=== PATIENT | female | born 1935 | race Caucasian/White ===

== ENCOUNTER → 2016-08-20 | Outpatient (CLI) | payer MEDICARE, OTHER ==
[~2016-08-20] MED LIST: ASPI325T32 PO; CERT400K SQ; HYDR-905 PO; LYRI25 PO; PANT40TA4 PO; TRAM50TA2 PO
--- NOTE | 2016-08-20 11:18 | RADRPT ---
PROCEDURE: Limited x-ray of both lower extremities. CLINICAL INDICATION: Bilateral leg pain. TECHNIQUE: Single frontal view of both lower extremities was obtained from the hips to the calves. COMPARISON: Left hip and knee radiographs dated 07/09/2016. FINDINGS: There are mild degenerative changes of the right hip. There is a total left hip arthroplasty. Ther e is a total right knee arthroplasty. There are moderate degenerative changes of the left knee. IMPRESSION: 1. Mild degenerative changes of the right hip. 2. Total left hip arthroplasty. 3. Total right hip arthroplasty. 4. Moderate degenerative changes of the left knee. RPTAT: QQ .Twan Sterling MD, MD Date Time Electronically viewed and signed by .Twan Sterling MD, on 08/20/2016 11:18 .R/
== END | disposition home or self-care (01) ==
LOC: HKI 09:42
PROVIDERS: ATTEND Orthopaedic Surgery
DX: Z01.818 Encounter for other preprocedural examination (principal); T84.092A Other mechanical complication of internal right knee prosthesis, initial encounter; Y83.8 Other surgical procedures as the cause of abnormal reaction of the patient, or of later complication, without mention of misadventure at the time of the procedure; M25.461 Effusion, right knee; M06.9 Rheumatoid arthritis, unspecified; Z96.642 Presence of left artificial hip joint
CPT/HCPCS: 77073; 87081; G0463

== ENCOUNTER 2016-08-26 10:44 | Inpatient (IN) | payer MEDICARE, OTHER ==
--- NOTE | 2016-08-23 10:11 | CONS ---
DATE OF ADMISSION: 08/26/2016 DATE OF CONSULTATION: REASON FOR ADMISSION: She is being admitted on August [address] Salomon for planned revision righ t total knee replacement. HISTORY OF PRESENT ILLNESS: This is a healthy 81-year-old female who is status post a right total k nee replacement in 2008 and now is to undergo definitive revision. For the details of her orthopedi c history, please see the full evaluation per Dr. Salomon. Medically, she is in excellent health, denies any history of hypertension, diabetes, asthma, hepatit is, or any cardiopulmonary disease. No recent fevers, chills, sweats, nausea or vomiting. No chest pain or shortness of breath. PAST MEDICAL HISTORY: Please see full dictated problem list. ALLERGIES: NONE. HABITS: Tobacco: None. Alcohol: None. CURRENT MEDICATIONS: None. REVIEW OF SYSTEMS: As per HPI, otherwise the 14-point review of system is negative. PHYSICAL EXAMINATION: GENERAL: Fit-appearing woman in no acute distress. VITAL SIGNS: Afebrile, blood pressure 120/70, heart rate 72 and regular, respirations 12 and unlabo red. SKIN: No rash. HEAD: Normocephalic, atraumatic. EYES: Pupils are equal, round, reactive. Extraocular movements are full. Sclerae are anicteric. PHARYNX: No lesions. NECK: JVP is not distended. There is no adenopathy or thyromegaly. Carotids are 2+, no bruits. BACK: No CVAT. LUNGS: Clear. HEART: S1, S2, regular rate and rhythm, no murmurs. ABDOMEN: Soft and nontender. No organomegaly. EXTREMITIES: No cyanosis, clubbing or edema. Distal pulses are intact. LABORATORY DATA: Please see enclosed. PROBLEM LIST: 1. Right knee pain for planned revision right total knee replacement. 2. History of right total knee replacement in 2008. 3. Status post left total hip replacement in December of 2012. RECOMMENDATIONS: The patient is medically cleared for planned surgery. I will be happy to follow h er in the postop. Dictated By: ANDREW ARNOLD MD MM/NTS Conf#: [id number] DID#: [id number]
[2016-08-26] VITALS (20 sets, daily range): BP systolic 100–138; BP diastolic 45–65; PULSE 64–80; RESP 11–18; Ht 144.8 cm; Wt 57.9 kg
[~2016-08-26] VITALS: Ht 144.8 cm; Wt 57.9 kg
[2016-08-26] MEDS ORDERED: TRANEXAMIC ACID 600 MG in SOD CHLORIDE 0.9% 94 ML IV ONE (11:00)
[2016-08-26] MEDS ORDERED: oxyCODONE (CR) 10 MG TAB [oxyCONTIN] X1 DOSE PO ONE (11:00)
[2016-08-26] MEDS ORDERED: VANCOMYCIN 1 GM/NS 250 ML X1 BEFORE INCISION IVPB ONE (11:00)
[2016-08-26] MEDS: PAIN COCKTAIL-CEFUROXIME IRR SCH ×14 (11:00→16:15)
[2016-08-26] MEDS ORDERED: TRANEXAMIC ACID 600 MG in SOD CHLORIDE 0.9% 100 ML IVPB SCH (11:00)
[2016-08-26] MEDS: LACTATED RINGER'S 1,000 ML IV SCH ×3 (11:00→22:08)
[2016-08-26] MEDS ORDERED: traMADOL 50 MG TAB X 1 DOSE PO ONE (11:00)
[2016-08-26] MEDS ORDERED: PREGABALIN 300 MG PO X1 PO ONE (11:00)
[2016-08-26] MEDS ORDERED: CELECOXIB 400 MG PO X1 DOSE PO ONE (11:00)
[2016-08-26] MEDS ORDERED: BUPIVACAINE LIPOSOME/PF 266 MG/20 ML VIAL INFIL SCH (11:00)
[2016-08-26] MEDS ORDERED: EXPAREL NOTE (BUPIVICAINE LIPOSOMAL) XX SCH (11:00)
[2016-08-26] MEDS ORDERED: CERT400K SQ (11:46)
--- NOTE | 2016-08-26 13:09 | HPN ---
Date/Time of Note Date/Time of Note DATE: 08/26/16 TIME: 13:09 Interval H&P Admission Note Pt. seen H&P reviewed: No system changes No change from H&P dictated by Dr. Hai Lazo on 08/23/16 SHANIQUA JUNE MD Aug 26, 2016 13:09
[2016-08-26] MEDS ORDERED: POLYMYXIN B 500000 UNIT INJ ONE (13:35)
[2016-08-26] MEDS ORDERED: VANCOMYCIN 1 GM INJ ONE ×3 (13:35→15:00)
[2016-08-26] MEDS ORDERED: SODIUM CL BACTERIOSTATIC 30 ML INJ ONE (13:35)
[2016-08-26] MEDS ORDERED: FENTAnyl 50 MCG/ML VIAL ONE (13:54)
[2016-08-26] MEDS ORDERED: CEFAZOLIN 1 GM INJ ONE (14:11)
[2016-08-26] MEDS ORDERED: LIDOCAINE 2% (SDV) 5 ML INJ ONE (14:11)
[2016-08-26] MEDS ORDERED: TOBRAMYCIN 1.2 GM POWDER ONE (14:38)
[2016-08-26] MEDS ORDERED: FAMOTIDINE 20 MG INJ ONE (15:14)
[2016-08-26] MEDS ORDERED: DEXAMETHASONE 4 MG/ML 1 ML INJ ONE (15:14)
[2016-08-26] MEDS ORDERED: ONDANSETRON 4 MG INJ ONE (15:14)
[2016-08-26] MEDS ORDERED: EPHEDrine SULFATE 50 MG/5 ML SYG ONE (15:15)
[2016-08-26] MEDS ORDERED: BACITRACIN 50000 UNITS INJ ONE (15:16)
[2016-08-26] MEDS ORDERED: ROCURONIUM 50 MG INJ ONE (15:30)
[2016-08-26] MEDS ORDERED: SUCCINYLCHOLINE CHLORIDE 100 MG/5 ML SYG IV ONE (15:30)
[2016-08-26] MEDS ORDERED: PROPOFOL 100 ML ONE (15:30)
[2016-08-26] MEDS ORDERED: ETOMIDATE 20 MG INJ ONE (15:30)
[2016-08-26] MEDS ORDERED: GLYCOPYRROLATE 1 MG INJ ONE (15:45)
[2016-08-26] MEDS ORDERED: NEOSTIGMINE 3 MG/3 ML SYRINGE ONE (15:45)
[2016-08-26] MEDS ORDERED: FENTAnyl 50 MCG/ML VIAL IV PRN (16:00)
[2016-08-26] MEDS ORDERED: ONDANSETRON 4 MG INJ IV PRN ×2 (16:00→17:30)
[2016-08-26] MEDS ORDERED: PROCHLORPERAZINE 10 MG INJ IV PRN (16:00)
[2016-08-26] MEDS ORDERED: HYDROmorphONE (0.2 MG/ML) 10ML SYG IV PRN ×2 (16:00)
[2016-08-26] MEDS ORDERED: DIPHENHYDRAMINE 50 MG INJ IV PRN (16:00)
--- NOTE | 2016-08-26 17:04 | RADRPT ---
PROCEDURE: Intraoperative imaging of the right knee with fluoroscopy. CLINICAL INDICATION: Right knee pain. Intraoperative. TECHNIQUE: 13 images of the right knee were obtained in the operating room with an image intensifi er. No radiologist was in attendance. 0.4 minutes of fluoroscopy time was used. COMPARISON: No prior study is available for comparison. FINDINGS: Images demonstrate placement of a total right knee arthroplasty. IMPRESSION: 1. Intraoperative imaging of the right knee. RPTAT: QQ .Twan Sterling MD, MD Date Time Electronically viewed and signed by .Twan Sterling MD, MD on 08/26/2016 17:04 .R/
[2016-08-26] MEDS ORDERED: oxyCODONE 5 MG TAB PO PRN ×2 (17:30)
[2016-08-26] MEDS ORDERED: NACL 0.9% 3 ML SYG IV SCH (17:30)
[2016-08-26] MEDS ORDERED: MAGNESIUM HYDROXIDE 30ML CUP PO PRN (17:30)
[2016-08-26] MEDS ORDERED: BISACODYL 10 MG SUPP PR PRN (17:30)
[2016-08-26] MEDS ORDERED: DIPHENHYDRAMINE 25 MG CAP PO PRN (17:30)
[2016-08-26] MEDS ORDERED: HYDROmorphONE 1 MG/ML SYG IV PRN (17:30)
[2016-08-26] MEDS ORDERED: ASPIRIN (EC) 325 MG TAB PO ONE (17:30)
[2016-08-26] MEDS ORDERED: NA PHOSPHATE/BIPHOS 133 ML ENEMA PR PRN (17:30)
--- NOTE | 2016-08-26 17:50 | OPPN ---
Date/Time of Note Date/Time of Note DATE: 08/26/16 TIME: 17:49 Operative/Procedure Note Dictation # [id number] Pre-Operative Diagnosis Failed Right TKA Post-Operative Diagnosis Same Procedure Revision Right TKA Surgeon: SHANIQUA JUNE MD Strike Out Machine Operator: CARISSA COYNE PA-C Anesthesiologist: HUYEN SALCEDO MD Findings Loose tibia Blood Usage/Administration None Implants/Grafts Depuy TC3 Estimated blood loss: 100 - 150 ml's Drains Hemovac x 1 Specimens Aerobic and anaerobic cultures x 2 Complications: None Anesthesia type: spinal SHANIQUA JUNE MD Aug 26, 2016 17:50
--- NOTE | 2016-08-26 17:55 | PN ---
Date/Time of Note Date/Time of Note DATE: 08/26/16 TIME: 17:42 Assessment/Plan Lines/Catheters IV Catheter Type (from Nrsg): Peripheral IV Assessment/Plan Assessment/Plan Stable in PACU, s/p revision right TKA -cont Vancomycin x 72 hours until final culture results -pain meds -ASA/SCDs for DVT prophylaxis -OOB with PT -check AM labs -monitor drain -d/c short in AM XR of the right knee shows good alignment with no evidence of dislocation Subjective 24 Hr Interval Summary Resting comfortably in PACU. Denies pain. Moving all extremities. Dressings and drain in place. Exam/Review of Systems Vital Signs Vitals Vital Signs Date Time Temp Pulse Resp B/P Pulse Ox O2 Delivery O2 Flow Rate FiO2 08/26/16 11:53 97.6 72 16 138/65 98 Room Air Intake and Output 08/25/16 08/25/16 08/26/16 15:00 23:00 07:00 Intake Total 0 ml Balance 0 ml Exam Free Text/Dictation Dressing dry Incision clean, dry, and intact without redness or drainage Thigh soft 5/5 Quadriceps, Tibialis Anterior, EHL, Gastroc, Soleus, Peroneals Normal sensation Palpable DT/PT, CR <2 sec No distal edema CARISSA COYNE PA-C Aug 26, 2016 17:53
[2016-08-26 18:00] LABS: HEMATOCRIT 34.8 % (37.0-47.0); HEMOGLOBIN 11.5 g/dl (12.0-16.0)
--- NOTE | 2016-08-26 18:07 | RADRPT ---
PROCEDURE: Right knee radiographs. CLINICAL INDICATION: Right knee pain. Postop. TECHNIQUE: Two views. Frontal and lateral. COMPARISON: 07/09/2016. FINDINGS: There is a right knee total arthroplasty revision. Antibiotic beads are noted in the suprapatellar bursa along with a surgical drain. There is no fracture or dislocation. There is no lytic lesion. IMPRESSION: 1. Satisfactory postoperative images of the right knee. RPTAT: QQ .Twan tSerling MD, MD Date Time Electronically viewed and signed by .Twan Sterling MD, MD on 08/26/2016 18:06 .R/
[2016-08-26] MEDS: ACETAMINOPHEN 1000MG/100ML IV 100 ML IVPB SCH (18:12)
[2016-08-26] MEDS: PANTOPRAZOLE (EC) 40 MG TAB PO SCH (18:13)
[2016-08-26] MEDS: traMADol 50 MG TAB PO SCH (18:13)
[2016-08-26 18:16] LABS: POTASSIUM 4.3 mmol/L (3.5-5.1)
[2016-08-26 18:39] LABS: CALCIUM 8.5 mg/dl (8.4-10.2); CREATININE 0.51 mg/dl (0.44-1.00)
[2016-08-26 19:10] LABS: ADD UMIC YES; URINE BILIRUBIN (Dip) NEGATIVE (NEGATIVE); URINE BLOOD (Dip) NEGATIVE (NEGATIVE); URINE COLOR LT. YELLOW (YELLOW); URINE GLUCOSE (Dip) NEGATIVE (NEGATIVE); URINE KETONES (Dip) NEGATIVE (NEGATIVE); URINE LEUKOCYTE ESTERASE (Dip) NEGATIVE (NEGATIVE); URINE NITRITE (Dip) NEGATIVE (NEGATIVE); URINE TOTAL PROTEIN (Dip) TRACE (NEGATIVE); URINE UROBILINOGEN (Dip) 0.2 E.U./dL (0.1-1.0)
[2016-08-26 19:45] LABS: BACTERIA,URINE FEW; TRANSITIONAL EPI CELLS,URINE MODERATE; URINE RBCS NONE SEEN /HPF (0)
--- NOTE | 2016-08-26 19:57 | CONS ---
DATE OF ADMISSION: 08/26/2016 DATE OF CONSULTATION: 08/26/2016 TYPE OF CONSULTATION: Postop medical. Dear Dr. Salomon: Thank you very much for allowing me to evaluate this 81-year-old female who underw ent a right total knee replacement. HISTORICAL EVENTS: As you well know, this patient did have a right knee replacement in 2008 and bec ause of increasing pain, elected to proceed with a needed revision. Postoperatively, in the recover y room, she is lethargic, responds to name, comfortable, not tachypneic. PAST MEDICAL HISTORY: Left total hip 2013. Unremarkable past medical history having no history of coronary artery disease, hypertension, diabetes. ALLERGIES: NONE. CURRENT MEDICATIONS: None. PHYSICAL EXAMINATION: GENERAL: Comfortable-appearing female in no acute distress. VITAL SIGNS: BP 125/80, pulse 70, respirations 20, she was afebrile. EYES: Extraocular muscles were full. NOSE, MOUTH, AND THROAT: Normal. NECK: Supple, no jugular venous distention, thyroid enlargement or adenopathy. LUNGS: Clear. HEART: Rhythm regular. ABDOMEN: Nontender. Liver and spleen were not palpable. No masses or tenderness were noted. EXTREMITIES: The right was bandaged. The left revealed no edema. IMPRESSION: 1. Stable postop right knee replacement. 2. Will evaluate her daily for signs and symptoms of thromboembolic disease despite an appropriate deep venous thrombosis prophylaxis. Dictated By: SITA ESCOBAR/AKIN Conf#: [id number] DID#: [id number]
--- NOTE | 2016-08-26 20:03 | OPR ---
DATE OF OPERATION: 08/26/2016 PREOPERATIVE DIAGNOSIS: Failed right total knee arthroplasty. POSTOPERATIVE DIAGNOSIS: Failed right total knee arthroplasty. OPERATION PERFORMED: Revision right total knee arthroplasty. SURGEON: Shaniqua Salomon MD TABLE ASSEMBLER: Odalis PEÑALOZA COMPONENTS USED: DePuy size 2 TC3 femur with a +2 five degree bolt, 8 mm medial and lateral distal augments, 34 mm metaphyseal femoral sleeve, and a 14 mm diameter x 75 mm femoral stem, size 2 MBT revision tibial tray, 45 mm metaphyseal tibial sleeve, and a 14 mm diameter x 75 mm tibial stem, 15 mm polyethylene insert. ANESTHESIA: Spinal plus general endotracheal intubation plus periarticular injection. ANESTHESIOLOGIST: Toma Sierra MD TOURNIQUET TIME: 98 minutes. ESTIMATED BLOOD LOSS: 100 mL. INTRAVENOUS FLUIDS: 2200 mL crystalloid. SPECIMENS: Aerobic and anaerobic culture of joint fluid x2. DRAINS: Hemovac x1. COMPLICATIONS: None. DISPOSITION: The patient tolerated the procedure well and was taken to the recovery room in stable condition. INDICATIONS: The patient is an 81-year-old woman who underwent a previous right total knee arthroplasty several years ago. She has had recurrent effusions and instability. She had an infection workup which was negative. I felt she would benefit from a revision with either liner exchange or a complete revision to TC3 components. The risks, benefits, alternatives of the procedure were explained in detail to the patient. I explained the risks to include but not be limited to bleeding and possible need for blood transfusion, infection, pain, stiffness, neurovascular injury, possible numbness, weakness, and/or paralysis anywhere from the knee down to the toes, fracture, ligamentous injury , need for additional future surgery including possible repeat revision total knee arthroplasty, possible loss of limb, possible wound healing problems, blood clots, pulmonary embolism, and anesthetic complications such as heart attack, stroke, GI bleed, pneumonia and/or . Ample time was allowed for the patient to ask questions, all of which were addressed and answered. She understood the risks involved and wished to proceed. Informed consent was signed prior to the procedure. PROCEDURE: The patient's right knee was initialed with a marking pen in the preoperative holding area to identify the correct operative site. The patient was then brought to the operating room and transferred from the [facility] to the operating table where she was administered a spinal anesthetic and then anesthetized and intubated. A Saenz catheter was placed. Time out was performed to confirm the right side was the correct operative site. A tourniquet was placed on right proximal thigh. The patient was given 1 gram of vancomycin and 1 gram of Ancef within 1 hour prior to the incision. A tourniquet was placed on right proximal thigh. The right knee and lower extremity were prepped and draped in usual sterile fashion. The right lower extremity was elevated and exsanguinated with the Esmarch tourniquet and the proximal thigh tourniquet was inflated to 275 mmHg. The knee was flexed. The previous midline incision was excised. This was carried down to subcutaneous tissue and fat with sharp dissection. Limited medial and lateral flaps were raised. The previous medial parapatellar arthrotomy was reincised. The previous Ethibond sutures were removed. Synovial fluid was normal in color and consistency and swabbed for aerobic and anaerobic culture x2. A medial release was performed at the joint line to the mid coronal plane. The patella was subluxed anteriorly and the knee flexed. The knee came to about 10 degrees of hyperextension and had some laxity in mid flexion to varus and valgus stress testing. The polyethylene insert was removed. There was some subtle motion at the tibial cement bone interface with some resorption of the medial tibial bone. I felt that she would benefit from complete revision given that there was some motion at the tibia. At this point, the Biomet Ultra-Drive was used to free up the remaining cement bone interface on both the tibia and femoral components. They were removed with minimal bone loss. The patellar button remained well fixed and in good position. At this point, the remaining cement was removed from the tibia and the tibia was reamed with hand reamers going up to 14 mm, getting a good bite. I then broached going up to a size 45 mm broach getting a good bite. The cleanup osteotomy was made on the top of the metaphyseal sleeve with the oscillating saw and the tibia trialed to be a 2. The trial size 2 tibia with a trial metaphyseal sleeve was placed into position and then the femur was reamed in a similar fashion by hand up to 14 mm and then broached up to a size 34 sleeve, getting a good bite. The femur was sized to be a 2. The size 2 four-in -one cutting block with 8 mm distal augments medially and laterally was pinned into position with the knee in 90 degrees of flexion with a 15 [address] in [address] to set the rotation. The anterior, posterior and chamfer cuts were made with the oscillating saw. The central box was cut out for TC3. A trial TC3 was assembled and placed into position. A 15 mm insert was placed in the tibia and reduced on the femur. The knee came to full extension as evidenced by the fact that with the foot on my abdomen, and axial loading, there was no tendency for the knee to flex. The knee was able to be flexed to 120 degrees with good patellar tracking with no lateral tilt or subluxation. There was no varus or valgus instability. C-arm imaging confirmed the components to be in good position on AP and lateral views. At this point, the trials were removed. The real components were opened and assembled on the back table. The knee was irrigated with antibiotic saline pulsatile lavage and then Betadine and peroxide, and then additional antibiotic saline pulsatile lavage and the bony surfaces were sucked dry. At this point, 3 bags of cement were mixed with vancomycin mixed into it and once in the doughy stage, real components were cemented into place, making sure that the metaphyseal sleeve porous coating was free of cement. This was held in place with a 15 mm insert with the knee in full extension. All excess cement was removed with curettes. Once the cement was completely hardened, the C-arm was brought in and final AP and lateral C-arm images confirmed the components were in good position and well aligned on AP and lateral views. At this point, the tourniquet was let down. The trial liner was removed. The real 15 mm polyethylene insert was opened and placed in the tibia and reduced onto the femur. At this point, Stimulan beads mixed with vancomycin and tobramycin were placed in the knee joint. A Hemovac drain was placed in the deep portion of the wound and brought out the anterolateral thigh. The arthrotomy was closed with a few interrupted #1 Ethibond and then a running #2 STRATAFIX suture. Knee flexion was checked against gravity and came to 120 degrees. The soft tissues were infiltrated with a mixture of 0.5% bupivacaine, 8 mg of Duramorph, 300 mcg of epinephrine, 750 mg of cefuroxime, 30 mg of Toradol, 100 mcg of clonidine, 50 mL of normal saline and 266 mg of liposomal bupivacaine. The subcutaneous layer was irrigated and closed with 2-0 STRATAFIX , 3-0 STRATAFIX and then interrupted 2-0 Prolenes in a vertical mattress fashion. The drain was secured with 3-0 nylon. Sponge and needle counts correct at the end of case. The wound was covered with a silver Mepilex and wrapped with sterile cast padding and a bias dressing. The patient was awakened , extubated, and taken to the recovery room in stable condition. Dictated By: SHANIQUA WEINBERG/AKIN Conf#: [id number] DID#: [id number] MTDD
[2016-08-26] MEDS: PREGABALIN 25 MG CAP PO SCH (20:50)
[2016-08-26] MEDS: DOCUSATE SODIUM 100 MG CAP PO SCH (20:51)
[2016-08-26] MEDS: VANCOMYCIN 1 GM (PMX) 250 ML IVPB SCH ×2 (21:00→22:08)
[2016-08-27] MEDS: ACETAMINOPHEN 1000MG/100ML IV 100 ML IVPB SCH ×3 (00:40→12:57)
[2016-08-27] MEDS: traMADol 50 MG TAB PO SCH ×4 (00:40→17:55)
[2016-08-27] MEDS: LACTATED RINGER'S 1,000 ML IV SCH ×5 (00:41→17:25)
[2016-08-27 05:10] LABS: HEMATOCRIT 29.9 % (37.0-47.0)
[2016-08-27 05:11] LABS: POTASSIUM 5.3 mmol/L (3.5-5.1)
[2016-08-27 05:13] LABS: CREATININE 0.51 mg/dl (0.44-1.00)
[2016-08-27] MEDS: PANTOPRAZOLE (EC) 40 MG TAB PO SCH ×2 (05:40→17:54)
[2016-08-27 05:58] VITALS: BP 117/59; PULSE 73; RESP 18
[2016-08-27 06:48] LABS: ADD UMIC YES; URINE BILIRUBIN (Dip) NEGATIVE (NEGATIVE); URINE BLOOD (Dip) TRACE (NEGATIVE); URINE COLOR LT. YELLOW (YELLOW); URINE GLUCOSE (Dip) NEGATIVE (NEGATIVE); URINE KETONES (Dip) NEGATIVE (NEGATIVE); URINE LEUKOCYTE ESTERASE (Dip) NEGATIVE (NEGATIVE); URINE NITRITE (Dip) NEGATIVE (NEGATIVE); URINE TOTAL PROTEIN (Dip) TRACE (NEGATIVE); URINE UROBILINOGEN (Dip) 0.2 E.U./dL (0.1-1.0)
[2016-08-27 07:26] LABS: SQUAMOUS EPITHELIAL CELL,UR FEW; URINE RBCS 0-2 /HPF (0)
[2016-08-27 07:55] VITALS: BP 111/56; RESP 18
--- NOTE | 2016-08-27 07:57 | PDOCDIS ---
Discharge Instructions DIAGNOSIS Discharge Diagnosis: s/p revison right TKA CONDITION Patient Condition: Good HOME CARE INSTRUCTIONS: Diet Instructions: Regular ACTIVITY: Activity Restrictions: Slowly Increase Activity Rest between Activity Avoid heavy lifting Do not operate Machinery Do not operate Power Tool Avoid Heavy Housework Keep Limb Elevated Bathing Restrictions: Shower FOLLOW UP/APPOINTMENTS Appointments follow up with Dr. Salomon in the office on 09/06/16 OTHER ORDERS: Other Orders: S/P TKA Physical Therapy: Three times per week at home x 2 weeks Daily in Rehab/SNF (if indicated) WB STATUS: WBAT 1. Strengthening exercises for both upper and un-operated lower extremities. 2. Gait training with front wheeled walker 3. Active range of motion exercises to operative knee. 4. When not working on knee range of motion exercises, distal towel roll under operative ankle/distal calf to promote full extension. 5. DO NOT PUT ANYTHING BEHIND OPERATIVE KNEE!!! 6. Quadriceps and hamstring strengthening. 7. May switch to cane in contra lateral hand 6 weeks after surgery. 8. Physical Therapy can open case if nursing is not available. 9. Use Ice Machine as instructed from date of surgery while at rest 3X/day. 10. Patient requires mobile SCDs to reduce risk of developing DVT following TKA. Patient will use the mobile SCDs for 30 days postoperatively. Bathing assistance by home health aide twice weekly if Medicare patient. Occupational Therapy: Evaluation for assistive devices and ADL training. Wound Care: Keep incision dry & covered with Tegaderm until first visit with Dr. Salomon Anticoagulation Orders: Enteric Coated Aspirin 325 mg po bid x 6 weeks from date of surgery Follow-up:Call for an appointment with Dr. Salomon in 1 week after discharged from hospital at DME Orders: FWW, 3-in-1 Commode, Polar ice machine, Mobile SCDs CARISSA COYNE PA-C Aug 27, 2016 07:57
[2016-08-27] MEDS ORDERED: HYDR-905 PO (07:59)
[2016-08-27] MEDS ORDERED: PANT40TA4 PO (07:59)
[2016-08-27] MEDS ORDERED: TRAM50TA2 PO (07:59)
[2016-08-27] MEDS ORDERED: LYRI25 PO (07:59)
[2016-08-27] MEDS ORDERED: ASPI325T32 PO (07:59)
--- NOTE | 2016-08-27 08:36 | CONS ---
Date/Time of Note Date/Time of Note DATE: 08/27/16 TIME: 08:35 Assessment/Plan Assessment/Plan Additional Assessment/Plan 1. Stable post op right knee 2. Sl in K, will stop celebrex and repeat K later Consultation Date/Type/Reason Admit Date/Time Aug 26, 2016 at 10:44 Initial Consult Date Detailed Summary Respiratory: No cough, No shortness of breath Cardiovascular: No chest pain Gastrointestinal: no complaints Genitourinary: other (short in place) Exam/Review of Systems Vital Signs Vitals Vital Signs Date Time Temp Pulse Resp B/P Pulse Ox O2 Delivery O2 Flow Rate FiO2 08/27/16 07:55 97.5 65 18 111/56 97 08/27/16 05:58 Nasal Cannula 08/26/16 21:15 2.0 Intake and Output 08/26/16 08/26/16 08/27/16 15:00 23:00 07:00 Intake Total 2420 ml 1850 ml Output Total 1270 ml 1280 ml Balance 1150 ml 570 ml Exam Neck: No jvd Respiratory: clear to auscultation Cardiovascular: regular rate and rhythm Gastrointestinal: soft Extremities: No edema (and no calf tend bilat) Results Result Diagram: 08/27/16 0440 08/27/16 0440 Results 24 hrs Laboratory Tests Test 08/26/16 17:34 08/26/16 17:45 08/27/16 04:00 08/27/16 04:40 Urine Bacteria FEW Urine Bilirubin NEGATIVE NEGATIVE Urine Clarity SLIGHTLY CLOUDY CLEAR Urine Coarse Granular Casts MODERATE Urine Color LT. YELLOW LT. YELLOW Urine Glucose NEGATIVE NEGATIVE Urine Hemoglobin NEGATIVE TRACE Urine Ketones NEGATIVE NEGATIVE Urine Leukocyte Esterase NEGATIVE NEGATIVE Urine Microscopic RBC NONE SEEN 0-2 Urine Microscopic WBC NONE SEEN 0-2 Urine Nitrite NEGATIVE NEGATIVE Urine Specific [place] 1.010 1.025 Urine Total Protein TRACE TRACE Urine Transitional Epithelial Cells MODERATE Urine Urobilinogen 0.2 E.U./dL 0.2 E.U./dL Urine pH 6.0 6.0 Anion Gap 13 15 Blood Urea Nitrogen 9 12 Calcium Level 8.5 9.0 Carbon Dioxide Level 24 23 Chloride Level 103 101 Creatinine 0.51 0.51 Glucose Level 150 146 Hematocrit 34.8 L 29.9 L Hemoglobin 11.5 L 10.0 L Potassium Level 4.3 5.3 H Sodium Level 136 134 L Urine Squamous Epithelial Cells FEW Medications Medications Current Medications Lactated Ringer's (Lr) 1,000 ml @ 100 mls/hr Q10H IV Last administered on 22:08; Admin Dose 100 MLS/HR; Start 08/26/16 at 11:00 Miscellaneous Information 1 ea 1 ea NOTE XX Last administered on 08/26/16 16:15 ; Admin Dose 1 EA; Start 08/26/16 at 11:00; Stop 08/30/16 at 10:59 Lactated Ringer's (Lr) 1,000 ml @ 125 mls/hr Q8H IV Last administered on 00:41; Admin Dose 125 MLS/HR; Start 08/26/16 at 17:25 Celecoxib 200 mg 200 mg DAILY PO ; Start 08/27/16 at 09:00 Acetaminophen (Ofirmev 1000mg/ 100ml Iv) 100 ml @ 400 mls/hr Q6 IVPB Last administered on 08/27/16 05:41; Admin Dose 400 MLS/HR; Start 08/26/16 at 18:00; Stop 08/27/16 at 17:59 Tramadol HCl (Ultram) 50 mg Q6 PO Last administered on 08/27/16 05:40; Admin Dose 50 MG; Start 08/26/16 at 18:00; Stop 08/29/16 at 17:59 Oxycodone HCl (Roxicodone) 5 mg Q4H PRN PO PAIN LEVEL 1-3; Start 08/26/16 at 17: 30 Oxycodone HCl (Roxicodone) 10 mg Q4H PRN PO PAIN LEVEL 4-7; Start 08/26/16 at 17 :30 Hydromorphone HCl 1 mg 1 mg Q3H PRN IV PAIN LEVEL 8-10; Start 08/26/16 at 17:30 Vancomycin HCl (Vancocin) 250 ml @ 125 mls/hr Q12 IVPB Last administered on 22:08; Admin Dose 125 MLS/HR; Start 08/26/16 at 21:00; Stop 08/29/16 at 20: 59 Ondansetron HCl (Zofran Inj) 4 mg Q6H PRN IV NAUSEA AND/OR VOMITING; Start 08/26 at 17:30 Bisacodyl (Dulcolax Supp) 10 mg Q12H PRN [place] CONSTIPATION; Start 08/26/16 at 17: 30 Magnesium Hydroxide (Milk Of Mag) 30 ml BID PRN PO CONSTIPATION; Start 08/26/16 at 17:30 Sodium Biphosphate/ Sodium Phosphate (Fleet Enema) 133 ml DAILY PRN [place] CONSTIPATION; Start 08/26/16 at 17:30 Docusate Sodium (Colace) 100 mg BID PO Last administered on 08/26/16 20:51; Admin Dose 100 MG; Start 08/26/16 at 21:00 Diphenhydramine HCl (Benadryl) 25 mg Q6H PRN PO PRURITUS; Start 08/26/16 at 17: 30 Aspirin (Ecotrin) 325 mg BID PO ; Start 08/27/16 at 09:00 Pantoprazole (Protonix Tab) 40 mg BID@06,18 PO Last administered on 08/27/16 05 :40; Admin Dose 40 MG; Start 08/26/16 at 18:00 Pregabalin (Lyrica) 50 mg BID PO Last administered on 08/26/16 20:50; Admin Dose 50 MG; Start 08/26/16 at 21:00 SITA LATIF MD Aug 27, 2016 08:36
[2016-08-27] MEDS: ASPIRIN (EC) 325 MG TAB PO SCH ×2 (08:58→21:23)
[2016-08-27] MEDS: DOCUSATE SODIUM 100 MG CAP PO SCH ×2 (08:58→21:23)
--- NOTE | 2016-08-27 08:59 | PN ---
Date/Time of Note Date/Time of Note DATE: 08/27/16 TIME: 08:57 Assessment/Plan Lines/Catheters IV Catheter Type (from Nrsg): Peripheral IV Saenz in Place (from Nrsg): Yes Assessment/Plan Assessment/Plan Stable POD #1, s/p revision right TKA -cont vanco until final culture results -ASA/SCDs -pain meds -OOB with PT -monitor drain -check AM labs -d/c planning. Home versus SNF Subjective 24 Hr Interval Summary Doing well. No acute overnight events. Denies pain. Did not start with PT. Still on abx Exam/Review of Systems Vital Signs Vitals Vital Signs Date Time Temp Pulse Resp B/P Pulse Ox O2 Delivery O2 Flow Rate FiO2 08/27/16 07:55 97.5 65 18 111/56 97 08/27/16 05:58 Nasal Cannula 08/26/16 21:15 2.0 Intake and Output 08/26/16 08/26/16 08/27/16 14:59 22:59 06:59 Intake Total 2420 ml 1850 ml Output Total 1270 ml 1280 ml Balance 1150 ml 570 ml Exam Free Text/Dictation Hemovac: 100cc Dressing dry Incision clean, dry, and intact without redness or drainage Thigh soft 5/5 Quadriceps, Tibialis Anterior, EHL, Gastroc, Soleus, Peroneals Normal sensation Palpable DT/PT, CR <2 sec No distal edema Results Result Diagram: 08/27/1643908/27/16439 CARISSA COYNE PA-C Aug 27, 2016 08:58
[2016-08-27] MEDS ORDERED: CELECOXIB 200 MG CAP PO SCH (09:00)
[2016-08-27] MEDS: PREGABALIN 25 MG CAP PO SCH ×2 (09:35→21:23)
[2016-08-27] MEDS: VANCOMYCIN 1 GM (PMX) 250 ML IVPB SCH (09:35)
[2016-08-27 21:30] VITALS: BP 122/59; PULSE 71; RESP 18
[2016-08-28] MEDS: LACTATED RINGER'S 1,000 ML IV SCH ×3 (01:25→08:48)
[2016-08-28] MEDS: PANTOPRAZOLE (EC) 40 MG TAB PO SCH ×2 (05:52→18:00)
[2016-08-28] MEDS: traMADol 50 MG TAB PO SCH ×5 (05:53→23:28)
[2016-08-28 05:55] LABS: POTASSIUM 4.1 mmol/L (3.5-5.1)
[2016-08-28 05:57] LABS: CREATININE 0.57 mg/dl (0.44-1.00)
[2016-08-28 05:58] LABS: CALCIUM 8.6 mg/dl (8.4-10.2)
[2016-08-28 06:58] LABS: HEMATOCRIT 27.6 % (37.0-47.0); HEMOGLOBIN 8.8 g/dl (12.0-16.0)
[2016-08-28 07:37] VITALS: BP 112/57; RESP 20
[2016-08-28] MEDS: VANCOMYCIN 1 GM (PMX) 250 ML IVPB SCH (08:43)
[2016-08-28] MEDS: PREGABALIN 25 MG CAP PO SCH ×2 (08:44→20:45)
[2016-08-28] MEDS: DOCUSATE SODIUM 100 MG CAP PO SCH ×2 (08:44→20:46)
[2016-08-28] MEDS: ASPIRIN (EC) 325 MG TAB PO SCH ×2 (08:44→20:45)
--- NOTE | 2016-08-28 11:40 | PN ---
Date/Time of Note Date/Time of Note DATE: 08/28/16 TIME: 11:38 Assessment/Plan Lines/Catheters IV Catheter Type (from Nrsg): Peripheral IV Saenz in Place (from Nrsg): Yes Assessment/Plan Assessment/Plan POD # 2. Stable. -Drain d/c'd -OOB with PT -Pain meds -ASA/SCDs -Continue Vanco x 24 hours until intraop cultures final -[facility] eval for possible transfer tomorrow Subjective 24 Hr Interval Summary Resting comfortably. Minimal pain. Exam/Review of Systems Vital Signs Vitals Vital Signs Date Time Temp Pulse Resp B/P Pulse Ox O2 Delivery O2 Flow Rate FiO2 08/28/16 07:37 98.8 80 20 112/57 97 08/27/16 21:30 Room Air 08/26/16 21:15 2.0 Intake and Output 08/27/16 08/27/16 08/28/16 15:00 23:00 07:00 Intake Total 250 ml 2540 ml 500 ml Output Total 40 ml Balance 250 ml 2500 ml 500 ml Exam Free Text/Dictation Hemovac: 40 cc overnight, none this AM Dressing dry Incision clean, dry, and intact without redness or drainage 5/5 Tibialis Anterior, EHL, Gastroc Soleus, Peroneals Normal sensation Palpable DP/PT, CR < 2 Sec No distal edema Cultures: no growth x 48 hours Results Result Diagram: 08/28/1642908/28/16429 SHANIQUA JUNE MD Aug 28, 2016 11:40
[2016-08-28] MEDS ORDERED: HYDROCODONE/APAP (5/325) TAB PO PRN ×2 (12:00)
[2016-08-28 19:51] VITALS: BP 138/63; RESP 18
--- NOTE | 2016-08-28 21:05 | CONS ---
Date/Time of Note Date/Time of Note DATE: 08/28/16 TIME: 21:03 Assessment/Plan Assessment/Plan Additional Assessment/Plan 1. Stable post op right knee, improved pain, refuses tramadolol -stable to be d/c to aru 2. Sl in K, will stop celebrex and repeat K later -improved d/c planning Coverage For Dr. Cory Hudson MD Internal Medicine Consultation Date/Type/Reason Admit Date/Time Aug 26, 2016 at 10:44 Type of Consultation: Internal Medicine Exam/Review of Systems Vital Signs Vitals Vital Signs Date Time Temp Pulse Resp B/P Pulse Ox O2 Delivery O2 Flow Rate FiO2 08/28/16 19:51 98.5 88 18 138/63 97 08/27/16 21:30 Room Air 08/26/16 21:15 2.0 Intake and Output 08/27/16 08/27/16 08/28/16 15:00 23:00 07:00 Intake Total 250 ml 2540 ml 500 ml Output Total 40 ml Balance 250 ml 2500 ml 500 ml Exam Constitutional: alert, oriented Psych: no complaints Head: atraumatic, normocephalic Eyes: nl conjunctiva ENMT: nl external ears & nose Neck: supple Respiratory: clear to auscultation Cardiovascular: nl pulses, regular rate and rhythm Gastrointestinal: nl liver, spleen, soft Extremities: normal pulses 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 Results Result Diagram: 08/28/16 0430 08/28/16 0430 Results 24 hrs Laboratory Tests Test 08/28/16 04:30 Anion Gap 12 Blood Urea Nitrogen 13 Calcium Level 8.6 Carbon Dioxide Level 25 Chloride Level 100 Creatinine 0.57 Glucose Level 89 # Hematocrit 27.6 L Hemoglobin 8.8 L Potassium Level 4.1 Sodium Level 133 L Medications Medications Current Medications Miscellaneous Information 1 ea NOTE XX Last administered on 08/26/16 16:15; Admin Dose 1 EA; Start 08/26/16 at 11:00; Stop 08/30/16 at 10:59 Tramadol HCl (Ultram) 50 mg Q6 PO Last administered on 08/28/16 08:45; Admin Dose 50 MG; Start 08/26/16 at 18:00; Stop 08/29/16 at 17:59 Hydromorphone HCl (Dilaudid) 1 mg Q3H PRN IV PAIN LEVEL 8-10; Start 08/26/16 at 17:30 Ondansetron HCl (Zofran Inj) 4 mg Q6H PRN IV NAUSEA AND/OR VOMITING; Start 08/26 at 17:30 Bisacodyl (Dulcolax Supp) 10 mg Q12H PRN [place] CONSTIPATION Last administered on 06:48; Admin Dose 10 MG; Start 08/26/16 at 17:30 Magnesium Hydroxide (Milk Of Mag) 30 ml BID PRN PO CONSTIPATION Last administered on 08/27/16 21:26; Admin Dose 30 ML; Start 08/26/16 at 17:30 Sodium Biphosphate/ Sodium Phosphate (Fleet Enema) 133 ml DAILY PRN [place] CONSTIPATION; Start 08/26/16 at 17:30 Docusate Sodium (Colace) 100 mg BID PO Last administered on 08/28/16 20:46; Admin Dose 100 MG; Start 08/26/16 at 21:00 Diphenhydramine HCl (Benadryl) 25 mg Q6H PRN PO PRURITUS; Start 08/26/16 at 17: 30 Aspirin (Ecotrin) 325 mg BID PO Last administered on 08/28/16 20:45; Admin Dose 325 MG; Start 08/27/16 at 09:00 Pantoprazole (Protonix Tab) 40 mg BID@06,18 PO Last administered on 08/28/16 05 :52; Admin Dose 40 MG; Start 08/26/16 at 18:00 Pregabalin 50 mg 50 mg BID PO Last administered on 08/28/16 20:45; Admin Dose 50 MG; Start 08/26/16 at 21:00 Vancomycin HCl (Vancocin) 250 ml @ 125 mls/hr Q24H IVPB Last administered on 08:43; Admin Dose 125 MLS/HR; Start 08/28/16 at 09:00; Stop 08/29/16 at 12 :00 Acetaminophen/ Hydrocodone Bitart ([place] (5/325)) 1 tab Q4H PRN PO MILD PAIN LEVEL 1-3; Start 08/28/16 at 12:00 Acetaminophen/ Hydrocodone Bitart ([place] (5/325)) 2 tab Q4H PRN PO MODERATE PAIN LEVEL 4-6; Start 08/28/16 at 12:00 FÁTIMA,TARA MD Aug 28, 2016 21:05
[2016-08-29] MEDS: traMADol 50 MG TAB PO SCH ×2 (06:16→09:44)
[2016-08-29] MEDS: PANTOPRAZOLE (EC) 40 MG TAB PO SCH ×2 (06:16→20:14)
[2016-08-29 06:20] LABS: POTASSIUM 3.9 mmol/L (3.5-5.1)
[2016-08-29 06:22] LABS: CREATININE 0.53 mg/dl (0.44-1.00)
[2016-08-29 06:23] LABS: CALCIUM 8.8 mg/dl (8.4-10.2)
[2016-08-29 07:21] VITALS: BP 118/56; PULSE 79; RESP 17
--- NOTE | 2016-08-29 08:55 | PN ---
Date/Time of Note Date/Time of Note DATE: 08/29/16 TIME: 08:52 Assessment/Plan Lines/Catheters IV Catheter Type (from Nrsg): Saline Lock Saenz in Place (from Nrsg): Yes Assessment/Plan Assessment/Plan POD # 3. Stable. -OOB with PT -Pain meds -ASA/SCDs -Possible transfer to ARU tomorrow -D/C Vanco since cultures negative Subjective 24 Hr Interval Summary Resting comfortably. Walked with PT yesterday. Being evaluated by ARU for possible transfer tomorrow. Exam/Review of Systems Vital Signs Vitals Vital Signs Date Time Temp Pulse Resp B/P Pulse Ox O2 Delivery O2 Flow Rate FiO2 08/29/16 07:21 97.2 79 17 118/56 95 Room Air 08/26/16 21:15 2.0 Intake and Output 08/28/16 08/28/16 08/29/16 15:00 23:00 07:00 Intake Total 1050 ml 1150 ml 850 ml Output Total 1250 ml 1200 ml 800 ml Balance -200 ml -50 ml 50 ml Exam Free Text/Dictation HemovacDressing dry Incision clean, dry, and intact without redness or drainage 5/ Tibialis Anterior, EHL, Gastroc Soleus, Peroneals Normal sensation Palpable DP/PT, CR < 2 Sec No distal edema Cultures: No growth x 72 hours (FINAL) Results Result Diagram: 08/28/1642908/29/16 043 SHANIQUA JUNE MD Aug 29, 2016 08:55
[2016-08-29] MEDS: PREGABALIN 25 MG CAP PO SCH ×2 (09:43→21:00)
[2016-08-29] MEDS: DOCUSATE SODIUM 100 MG CAP PO SCH ×2 (09:44→21:00)
[2016-08-29] MEDS: ASPIRIN (EC) 325 MG TAB PO SCH ×2 (09:44→21:39)
[2016-08-29] MEDS: VANCOMYCIN 1 GM (PMX) 250 ML IVPB SCH (09:44)
[2016-08-29 13:46] LABS: HEMATOCRIT 30.5 % (37.0-47.0); HEMOGLOBIN 10.2 g/dl (12.0-16.0)
--- NOTE | 2016-08-29 17:24 | CONS ---
Date/Time of Note Date/Time of Note DATE: 08/29/16 TIME: 17:22 Assessment/Plan Assessment/Plan Additional Assessment/Plan 1. Stable post op right knee, improved pain, refuses tramadolol -Denied ARU, family wants continued rehab -SNF d/c planning pending -wound care per ortho 2. Paula K, will stop celebrex and repeat K later -improved 3. HypoNa/Cl, likely dehydration, willgive NS 1 liter, check aml d/c planning Coverage For Dr. Cory Hudson MD Internal Medicine Consultation Date/Type/Reason Admit Date/Time Aug 26, 2016 at 10:44 Type of Consultation: Internal Medicine 24 HR Interval Summary Constitutional: improved, no complaints Exam/Review of Systems Vital Signs Vitals Vital Signs Date Time Temp Pulse Resp B/P Pulse Ox O2 Delivery O2 Flow Rate FiO2 08/29/16 07:21 97.2 79 17 118/56 95 Room Air 08/26/16 21:15 2.0 Intake and Output 08/28/16 08/28/16 08/29/16 15:00 23:00 07:00 Intake Total 1050 ml 1150 ml 850 ml Output Total 1250 ml 1200 ml 800 ml Balance -200 ml -50 ml 50 ml Exam Constitutional: alert, oriented Neck: supple Respiratory: clear to auscultation Cardiovascular: regular rate and rhythm Gastrointestinal: soft Genitourinary - Female: nl adnexae Musculoskeletal: nl extremities to inspection 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 Results Result Diagram: 08/29/16 0430 08/29/16 0430 Results 24 hrs Laboratory Tests Test 08/29/16 04:30 Anion Gap 13 Blood Urea Nitrogen 9 Calcium Level 8.8 Carbon Dioxide Level 31 Chloride Level 90 #L Creatinine 0.53 Glucose Level 88 Hematocrit 30.5 L Hemoglobin 10.2 L Potassium Level 3.9 Sodium Level 130 L Medications Medications Current Medications Miscellaneous Information 1 ea NOTE XX Last administered on 08/26/16 16:15; Admin Dose 1 EA; Start 08/26/16 at 11:00; Stop 08/30/16 at 10:59 Tramadol HCl (Ultram) 50 mg Q6 PO Last administered on 08/29/16 09:44; Admin Dose 50 MG; Start 08/26/16 at 18:00; Stop 08/29/16 at 17:59 Hydromorphone HCl (Dilaudid) 1 mg Q3H PRN IV PAIN LEVEL 8-10; Start 08/26/16 at 17:30 Ondansetron HCl (Zofran Inj) 4 mg Q6H PRN IV NAUSEA AND/OR VOMITING; Start 08/26 at 17:30 Bisacodyl (Dulcolax Supp) 10 mg Q12H PRN [place] CONSTIPATION Last administered on 06:48; Admin Dose 10 MG; Start 08/26/16 at 17:30 Magnesium Hydroxide (Milk Of Mag) 30 ml BID PRN PO CONSTIPATION Last administered on 08/27/16 21:26; Admin Dose 30 ML; Start 08/26/16 at 17:30 Sodium Biphosphate/ Sodium Phosphate (Fleet Enema) 133 ml DAILY PRN [place] CONSTIPATION; Start 08/26/16 at 17:30 Docusate Sodium (Colace) 100 mg BID PO Last administered on 08/29/16 09:44; Admin Dose 100 MG; Start 08/26/16 at 21:00 Diphenhydramine HCl (Benadryl) 25 mg Q6H PRN PO PRURITUS; Start 08/26/16 at 17: 30 Aspirin (Ecotrin) 325 mg BID PO Last administered on 08/29/16 09:44; Admin Dose 325 MG; Start 08/27/16 at 09:00 Pantoprazole (Protonix Tab) 40 mg BID@,18 PO Last administered on 08/29/16 06 :16; Admin Dose 40 MG; Start 08/26/16 at 18:00 Pregabalin (Lyrica) 50 mg BID PO Last administered on 08/29/16 09:43; Admin Dose 50 MG; Start 08/26/16 at 21:00 Acetaminophen/ Hydrocodone Bitart ([place] (5/325)) 1 tab Q4H PRN PO MILD PAIN LEVEL 1-3; Start 08/28/16 at 12:00 Acetaminophen/ Hydrocodone Bitart ([place] (5/325)) 2 tab Q4H PRN PO MODERATE PAIN LEVEL 4-6; Start 08/28/16 at 12:00 TARA HUDSON MD Aug 29, 2016 17:24
[2016-08-29] MEDS: SOD CHLORIDE 0.9% 1,000 ML IV SCH ×2 (18:21→21:30)
[2016-08-29 20:08] VITALS: BP 120/58; RESP 18
[2016-08-30] MEDS: SOD CHLORIDE 0.9% 1,000 ML IV SCH (01:30)
[2016-08-30] MEDS: PANTOPRAZOLE (EC) 40 MG TAB PO SCH ×2 (05:56→18:08)
--- NOTE | 2016-08-30 08:45 | CONS ---
Date/Time of Note Date/Time of Note DATE: 08/30/16 TIME: 08:43 Assessment/Plan Assessment/Plan Additional Assessment/Plan 1. Stable post op right knee replacement 2. Hyponatremia noted yest, labs pending today 3. Constipation, will give lactulose today Consultation Date/Type/Reason Admit Date/Time Aug 26, 2016 at 10:44 Type of Consultation: Internal Medicine Detailed Summary Respiratory: No cough, No shortness of breath Cardiovascular: No chest pain Gastrointestinal: other (no bm), pain, No nausea, No vomiting Genitourinary: no complaints Musculoskeletal: bone/joint pain (mild right knee pain) Exam/Review of Systems Vital Signs Vitals Vital Signs Date Time Temp Pulse Resp B/P Pulse Ox O2 Delivery O2 Flow Rate FiO2 08/29/16 20:08 98.2 89 18 120/58 96 08/29/16 07:21 Room Air 08/26/16 21:15 2.0 Intake and Output 08/29/16 08/29/16 08/30/16 15:00 23:00 07:00 Intake Total 250 ml 540 ml 1700 ml Output Total 600 ml Balance 250 ml -60 ml 1700 ml Exam Neck: No jvd Respiratory: clear to auscultation Cardiovascular: regular rate and rhythm Gastrointestinal: soft Extremities: No edema Results Result Diagram: 08/29/16 0430 08/29/16 0430 Medications Medications Current Medications Miscellaneous Information 1 ea NOTE XX Last administered on 08/26/16 16:15; Admin Dose 1 EA; Start 08/26/16 at 11:00; Stop 08/30/16 at 10:59 Hydromorphone HCl (Dilaudid) 1 mg Q3H PRN IV PAIN LEVEL 8-10; Start 08/26/16 at 17:30 Ondansetron HCl (Zofran Inj) 4 mg Q6H PRN IV NAUSEA AND/OR VOMITING; Start 08/26 at 17:30 Bisacodyl (Dulcolax Supp) 10 mg Q12H PRN [place] CONSTIPATION Last administered on 06:48; Admin Dose 10 MG; Start 08/26/16 at 17:30 Magnesium Hydroxide (Milk Of Mag) 30 ml BID PRN PO CONSTIPATION Last administered on 08/27/16 21:26; Admin Dose 30 ML; Start 08/26/16 at 17:30 Sodium Biphosphate/ Sodium Phosphate (Fleet Enema) 133 ml DAILY PRN [place] CONSTIPATION; Start 08/26/16 at 17:30 Docusate Sodium (Colace) 100 mg BID PO Last administered on 08/29/16 09:44; Admin Dose 100 MG; Start 08/26/16 at 21:00 Diphenhydramine HCl (Benadryl) 25 mg Q6H PRN PO PRURITUS; Start 08/26/16 at 17: 30 Aspirin (Ecotrin) 325 mg BID PO Last administered on 08/29/16 21:39; Admin Dose 325 MG; Start 08/27/16 at 09:00 Pantoprazole (Protonix Tab) 40 mg BID@18 PO Last administered on 08/29/16 20 :14; Admin Dose 40 MG; Start 08/26/16 at 18:00 Pregabalin (Lyrica) 50 mg BID PO Last administered on 08/29/16 09:43; Admin Dose 50 MG; Start 08/26/16 at 21:00 Acetaminophen/ Hydrocodone Bitart ([place] (5/325)) 1 tab Q4H PRN PO MILD PAIN LEVEL 1-3; Start 08/28/16 at 12:00 Acetaminophen/ Hydrocodone Bitart ([place] (5/325)) 2 tab Q4H PRN PO MODERATE PAIN LEVEL 4-6; Start 08/28/16 at 12:00 SITA LATIF MD Aug 30, 2016 08:45
--- NOTE | 2016-08-30 08:55 | PN ---
Date/Time of Note Date/Time of Note DATE: 08/30/16 TIME: 08:54 Assessment/Plan Lines/Catheters IV Catheter Type (from Nrsg): Saline Lock Saenz in Place (from Nrsg): Yes Assessment/Plan Assessment/Plan Stable POD #4, s/p revision right TKA -stat doppler, r/o DVT -pain meds -ASA and SCDs -OOB with PT -dressing changed today -if doppler negative, will transfer to [facility] today Subjective 24 Hr Interval Summary Resting comfortably. No acute overnight events. Mild pain with PT. VSS, afebrile Exam/Review of Systems Vital Signs Vitals Vital Signs Date Time Temp Pulse Resp B/P Pulse Ox O2 Delivery O2 Flow Rate FiO2 08/29/16 20:08 98.2 89 18 120/58 96 08/29/16 07:21 Room Air 08/26/16 21:15 2.0 Intake and Output 08/29/16 08/29/16 08/30/16 15:00 23:00 07:00 Intake Total 250 ml 540 ml 1700 ml Output Total 600 ml Balance 250 ml -60 ml 1700 ml Exam Free Text/Dictation Mild RLE swelling Dressing dry Incision clean, dry, and intact without redness or drainage Thigh soft 5/5 Quadriceps, Tibialis Anterior, EHL, Gastroc, Soleus, Peroneals Normal sensation Palpable DT/PT, CR <2 sec No distal edema Results Result Diagram: 08/29/1642908/29/16429 CARISSA COYNE PA-C Aug 30, 2016 08:55
[2016-08-30 08:59] VITALS: BP 136/62; RESP 16
[2016-08-30] MEDS ORDERED: LACTULOSE 30ML CUP PO ONE (09:00)
[2016-08-30] MEDS: ASPIRIN (EC) 325 MG TAB PO SCH ×2 (09:17→20:35)
[2016-08-30] MEDS: PREGABALIN 25 MG CAP PO SCH ×2 (09:17→20:35)
[2016-08-30] MEDS: DOCUSATE SODIUM 100 MG CAP PO SCH ×2 (09:18→20:35)
--- NOTE | 2016-08-30 10:00 | RADRPT ---
PROCEDURE: US DVT. CLINICAL INDICATION: Right lower extremity swelling. TECHNIQUE: Multiple longitudinal and transverse images of the right lower extremity veins were obt ained with hutchinson scale and color Doppler imaging. 2D grayscale measurements with compression, color Doppler flow, and augmentation was performed. The calf veins were interrogated as well. COMPARISON: No prior studies are available for comparison. FINDINGS: The right common femoral, superficial femoral and popliteal veins are normally compressible througho ut. Color flow demonstrates normal filling of the vessel. Normal waveforms are visualized and ther e is normal response to augmentation. The calf veins are visualized and are equally unremarkable. IMPRESSION: 1. No evidence of a deep vein thrombosis involving the right lower extremity. RPTAT: QQ .Dandre Burton MD, MD Date Time Electronically viewed and signed by .Dandre Burton MD, on 08/30/2016 10:00 .R/
[2016-08-30 11:10] LABS: HEMATOCRIT 31.1 % (37.0-47.0); HEMOGLOBIN 10.4 g/dl (12.0-16.0)
[2016-08-30 11:15] LABS: POTASSIUM 3.4 mmol/L (3.5-5.1)
[2016-08-30 11:17] LABS: CREATININE 0.47 mg/dl (0.44-1.00)
[2016-08-30 11:18] LABS: CALCIUM 9.2 mg/dl (8.4-10.2); MAGNESIUM 1.7 mg/dl (1.7-2.5); PHOSPHORUS 3.4 mg/dl (2.5-4.9)
[2016-08-30] MEDS: POTASSIUM CHLORIDE (SR) 10 MEQ TAB PO SCH ×2 (14:43→18:09)
--- NOTE | 2016-08-31 01:11 | DS ---
DATE OF ADMISSION: 08/26/2016 DATE OF DISCHARGE: 08/30/2016 CONDITION ON DISCHARGE: Stable. 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 DISCHARGE DIAGNOSIS: Status post revision right total knee arthroplasty. PROCEDURE PERFORMED: Revision right total knee arthroplasty. HOSPITAL COURSE: This is an 81-year-old female who previously underwent a previous right TKA approximately [address] Salomon. She continued to have recurrent pain and swelling and stated she could not live with the pain that she continued to have. A lengthy discussion was done with the patient and family, who elected to proceed with revision right total knee arthroplasty. On 08/26/2016, the patient was admitted and taken to the operating room, where she underwent a revision right total knee arthroplasty. There were no intraoperative complications. The patient tolerated the procedure well. She was taken to the recovery room in stable condition. Pain was well controlled with oral pain medication. She was started on aspirin and SCDs for DVT prophylaxis. She remained hemodynamically stable and neurovascularly intact throughout her hospital stay. On postoperative day 1, she began physical therapy and continues to make good progress. She was deemed clinically stable for transfer on postoperative day 4. Prior to transfer to [facility], the patient's incision was inspected and noted to be clean, dry and intact. Dressing changes were done prior to the patient going to [facility] rehab facility. LABORATORY ANALYSIS: Upon discharge, hemoglobin 10.4, hematocrit 31.1. Chemistry panel: Sodium is 132, potassium 3.4, chloride 94. BUN and creatinine as well as glucose within normal limits. DISCHARGE MEDICATIONS: 1. [place] 7.5/325 mg. 2. Tramadol 50 mg. 3. Aspirin 325 mg. 4. Protonix 40 mg. Additionally, the patient should resume all of her normal home medication. DISCHARGE INSTRUCTIONS: The patient will be transferred to [facility] in stable condition. She is to resume a normal diet. Activities include weightbearing as tolerated on the right lower extremity. She is to begin physical therapy at [facility]. She will be transferred with the medications noted above. Additionally, she is to resume all of her normal home medication. The patient is to call the office or return to the emergency room with any concerns including increased redness, swelling, drainage, fever or any concerns regarding the operation or site of incision. FOLLOWUP: The patient is follow up with Dr. Salomon in the office on 09/06/2016. Dictated By: CARISSA CHANCE/AKIN Conf#: [id number] DID#: [id number] MTDD
== END 2016-08-30 21:00 | DRG 467 ==
LOC: REC 10:44 → MS1 19:50
PROVIDERS: ADMIT Orthopaedic Surgery; ATTEND Orthopaedic Surgery
PROC: 0SPC09Z Removal of Liner from Right Knee Joint, Open Approach (ICD-10-PCS; 2016-08-26)
PROC: 0SPT0JZ Removal of Synthetic Substitute from Right Knee Joint, Femoral Surface, Open Approach (ICD-10-PCS; 2016-08-26)
PROC: 0SUV09Z Supplement Right Knee Joint, Tibial Surface with Liner, Open Approach (ICD-10-PCS; 2016-08-26)
PROC: 3E0U029 Introduction of Other Anti-infective into Joints, Open Approach (ICD-10-PCS; 2016-08-26)
PROC: 0SRC0J9 Replacement of Right Knee Joint with Synthetic Substitute, Cemented, Open Approach (ICD-10-PCS; principal; 2016-08-26 13:00)
DX: T84.022A Instability of internal right knee prosthesis, initial encounter (principal); E87.1 Hypo-osmolality and hyponatremia; T84.84XA Pain due to internal orthopedic prosthetic devices, implants and grafts, initial encounter; Z96.642 Presence of left artificial hip joint
CPT/HCPCS: 73560; 73562; 80048; 81001; 81003; 82040; 83735; 84100; 84132; 85014; 85018; 86850; 86900; 86901; 86920; 87070; 87075; 87081; 87086; 88300; 88305; 93971; 97110; 97116; 97162; 97166; 97530; C1776; C1713; C9290; J0131; J0171; J0330; J0690; J0697; J0735; J1100; J1885; J2274; J2405; J2710; J3010; J3370; J7030; J7120

== ENCOUNTER → 2016-09-06 | Outpatient (CLI) | payer MEDICARE, OTHER ==
--- NOTE | 2016-09-07 04:41 | HKNOTE ---
DATE OF SERVICE: 09/06/2016 INTERVAL HISTORY: The patient presents today for first postoperative evaluation. She is now 10 days status post right revision right total knee arthroplasty. She is doing well overall. She is at home with her daughter. She denies any fevers or chills. She is taking aspirin as prescribed. She is ambulatory using a front-wheel walker. She presents today for her first postoperative evaluation. PHYSICAL EXAMINATION: On examination today, the patient is alert and oriented x4, and in no acute distress. She is walking with a front-wheel walker. She does have some mild soft tissue swelling. Homans sign is negative. Incision is clean, dry and intact. Sutures are in place. Compartments are otherwise soft. She is neurovascularly intact distally. There is no erythema or warmth noted. IMAGING: X-rays of the right knee were obtained and reviewed by me today show good anatomic alignment of the prosthesis. There is no fracture or hardware loosening noted. ASSESSMENT: Ten days status post revision right total knee arthroplasty. DISCUSSION: The sutures were removed today and Steri-Strips were applied. Given the amount of soft tissue swelling, we will obtain a venous duplex and rule out DVT, although the likelihood of DVT is low at this point. She is to continue physical therapy with home health. She is to ambulate with a front- wheel walker. She is to continue taking aspirin 325mg twice daily for 6 weeks for DVT prophylaxis. We will see her back in 4 weeks for repeat evaluation and x-ray. Patient is to call the office if she has any concerns. Dictated By: CARISSA CHANCE/AKIN Conf#: [id number] DID#: [id number] SARAH
--- NOTE | 2016-09-07 08:44 | RADRPT ---
PROCEDURE: XR right knee. CLINICAL INDICATION: Knee pain. TECHNIQUE: AP and lateral weightbearing views are available for review. COMPARISON: 08/26/2016 FINDINGS: There is a constrained total knee replacement. There is no evidence of loosening of the prosthesis. There is diffuse osteopenia. No acute fracture or dislocation is seen.No osseous lesions are identif ied. The soft tissues are unremarkable . IMPRESSION: Diffuse osteopenia Unremarkable constrained total knee replacement. RPTAT: HGDB .Garry Colon MD, MD Date Time Electronically viewed and signed by .Grary Colon MD, on 09/07/2016 08:44 .B/
== END | disposition home or self-care (01) ==
LOC: HKI 10:00
PROVIDERS: ATTEND Orthopaedic Surgery
DX: Z47.89 Encounter for other orthopedic aftercare (principal); Z96.651 Presence of right artificial knee joint

== ENCOUNTER → 2016-10-04 | Outpatient (CLI) | payer MEDICARE, OTHER | END | disposition home or self-care (01) | LOC: HKI 10:00 | PROVIDERS: ATTEND Orthopaedic Surgery | DX: Z47.1 Aftercare following joint replacement surgery (principal); Z96.651 Presence of right artificial knee joint ==

== ENCOUNTER 2017-11-09 07:28 | Day surgery (SDC) | END 2017-11-09 14:53 | disposition home or self-care (01) ==